=== PATIENT | male | born 1970 | race Caucasian/White ===

== ENCOUNTER 2018-03-23 15:18 | Emergency (ER) | payer OTHER ==
[~2018-03-23] VITALS: Ht 200.7 cm; Wt 104.3 kg
[2018-03-23 15:53] LABS: ABSOLUTE EOSINOPHILS 0.3 thou/uL (0.0-0.7); ABSOLUTE LYMPHOCYTES 1.9 thou/uL (0.8-5.3); ABSOLUTE MONOCYTES 0.8 thou/uL (0.0-1.2); ABSOLUTE NEUTROPHILS 5.7 thou/uL (1.6-8.1); BASOPHILS 0.6 %; EOSINOPHILS 2.9 %; HEMATOCRIT 44.5 % (42.0-52.0); HEMOGLOBIN 14.8 gm/dL (14.0-18.0); LYMPHOCYTES 21.9 %; MCHC 33.3 g/dL (28.0-37.0); MCV 89.9 fL (80.0-100.0); MONOCYTES 9.2 %; MPV 7.5 fl. (7.2-11.1); NUCLEATED RBCS 0 /100WBC; PLATELET COUNT* 360 thou/uL (150-400); POLYS 65.4 %; RBC 4.95 mil/uL (4.50-6.00); RDW-CV 14.4 % (10.5-14.5); WBC 8.7 thou/uL (4.0-11.0)
[2018-03-23 15:57] LABS: CALCIUM 8.8 mg/dL (8.5-10.1); CREATININE 1.1 mg/dL (0.6-1.3); POTASSIUM 3.6 mmol/L (3.5-5.1)
[2018-03-23 16:01] LABS: ALBUMIN 3.8 g/dL (3.4-5.0); TOTAL BILIRUBIN 0.2 mg/dL (<0.1-1.0); TOTAL PROTEIN 7.6 g/dL (6.4-8.2)
[2018-03-23] MEDS ORDERED: NORCO 5-325 TA1 EACH PO (20:31)
[2018-03-23] MEDS ORDERED: FLOMAX0.4 MG PO (20:31)
[2018-03-23] MEDS ORDERED: ZOFRAN4 MG PO (20:31)
[2018-03-23 21:49] VITALS: BP 106/65
== END 2018-03-23 21:49 | disposition home or self-care (01) ==
LOC: M.ERS 15:18
PROVIDERS: Nurse Practitioner Family
DX: N20.2 Calculus of kidney with calculus of ureter (principal)